=== PATIENT | male | born 1955 | race Two or more races ===

== ENCOUNTER 2020-08-28 09:50 | Outpatient (REF) | payer MEDICARE, MEDICAID, SELFPAY | END 2020-08-28 09:51 | disposition home or self-care (01) | LOC: HO.LAB 09:50 | PROVIDERS: Visit Provider Internal Medicine | DX: Z20.828 Contact with and (suspected) exposure to other viral communicable diseases (principal) | CPT/HCPCS: C9803; U0003 ==

== ENCOUNTER 2020-09-08 10:56 | Outpatient (REF) | payer MEDICARE, MEDICAID, SELFPAY | END 2020-09-08 10:57 | disposition home or self-care (01) | LOC: HO.LAB 10:56 | PROVIDERS: Visit Provider Internal Medicine | DX: Z20.828 Contact with and (suspected) exposure to other viral communicable diseases (principal) | CPT/HCPCS: C9803; U0003 ==

== ENCOUNTER 2020-09-21 08:29 | Outpatient (REF) | payer MEDICARE, MEDICAID, SELFPAY | END 2020-09-21 08:30 | disposition home or self-care (01) | LOC: HO.LAB 08:29 | PROVIDERS: PCP Psychiatry & Neurology Neurology; Visit Provider Internal Medicine | DX: Z20.822 Contact with and (suspected) exposure to COVID-19 (principal) | CPT/HCPCS: 36415; C9803; U0003 ==

== ENCOUNTER 2021-08-14 09:18 | Emergency (ER) | payer MEDICARE, MEDICAID, SELFPAY ==
--- NOTE | ~2021-08-14 | XR_ITS ---
EXAMINATION: XR HIP, RIGHT CLINICAL INFORMATION: Right hip pain COMPARISON: None TECHNIQUE: AP pelvis and 2 views of the right hip. FINDINGS: AP film of the pelvis does not demonstrate any evidence of acute fracture or diastases. Patient is status post previous pedicle screw and aashish fixation L4-S1. No destructive bony lesions are appreciated. There appears to be some narrowing of the inferior joint space of the left hip. Collar spurring is seen bilaterally within the hip joints. There is some cortical thickening/bump seen about the superior aspect of the left proximal femoral head and neck. This may be related to impingement syndrome. There appears be fusion superior aspects of the sacroiliac joints bilaterally. 2 views of the right hip do not demonstrate any evidence of acute fracture or dislocation. There is a small bump seen involving the junctions of the right femoral head and neck superiorly which may be related to impingement syndrome. XR/XR hip RT w PEL1V IMPRESSION: Status post instrumentation L4-S1. No evidence of acute fracture or dislocation of the right hip. Bilateral hip, spurring. Findings consistent with bilateral hip impingement.
[2021-08-14 09:36] VITALS: BP 144/78; PULSE 75; O2SAT 100
[2021-08-14 09:37] VITALS: BP 148/75; PULSE 82; RESP 18; TEMP 36.6; O2SAT 100; BMI 31.6
--- NOTE | 2021-08-14 09:51 | ED_ITS ---
HPI - General Adult General Chief complaint: Extremity Injury, Lower Stated complaint: RIGHT HIP PAIN NO NEW INJURY PER EMS Time Seen by Provider: 08/14/21 09:43 Source: patient Mode of arrival: EMS Limitations: no limitations History of Present Illness HPI narrative: These is 65 years old patient with chronic hip pain follow by a pain clinic in another hospital presented to the emergency room by ambulance with severe hip pain. A Tums he takes meloxicam, morphine, oxycodone. He states that he has arthritis about the cannot be open rated be because he has a difficult airway and is a poor surgical candidate because of that Onset (ago): week(s) Location: right and lower extremity (hip) Radiation: non-radiation Severity: moderate Quality: burning Pain Consistency: constant Relieving factors: none Exacerbating factors: none Treatments prior to arrival: NSAID and other (narcotic Morphin and oxycodone ) Related Data Allergies Allergy/AdvReac Type Severity Reaction Status Date / Time No Known Allergies Allergy Unverified 05/28/20 18:31 Review of Systems Review of Systems: Yes all other systems are reviewed and are negative Constitutional: Constitutional: Reports no additional constitutional co mplaints Cardiovascular: Cardiovascular: Reports no additional cardiovascular complaints Respiratory: Respiratory: Reports no additional respiratory complaints Musculoskeletal: Musculoskeletal: Reports no additional musculoskeletal compla ints [facility] Past Medical History Attestation statement: The following information was validated with the patient. Medical History Depression High cholesterol HTN (hypertension) Social History Social History Advance Directives: No Advance Directives Information Provided: Yes Physical Exam Vital Signs: Vital Signs: Last Vital Signs Temp 98 F 08/14/21 09:37 Pulse 82 08/14/21 09:37 Resp 18 08/14/21 09:37 BP 148/75 H 08/14/21 09:37 Pulse Ox 100 08/14/21 09:37 BMI result Body Mass Index 31.6 Const: General: cooperative Nutritional Appearance: average body habitus Orientation/consciousness: patient oriented x3 HENMT: Head: Yes normal to inspection Face and sinus: Yes normal facial exam Mouth: Normal oral and palatal mucosa present Neck: Neck: Yes normal visual inspection, Yes full ROM and Yes no lymphadenopathy Chest: Chest palpation & inspection: normal inspection of the chest Resp: Effort & Inspection: normal respiratory effort Auscultation: clear to auscultation bilaterally GI: Inspection: Yes normal to inspection Palpation (GI): Soft to palpation, not firm and nontender Skin: General skin exam: no rashes or lesions noted Neuro: General: patient oriented x3 Extrem: Other: rt hip tenderness decrease ROM Course Reevaluation(s) Reevaluation #1: Patient was seen by PT in the emergency department, he was able to ambulate safely with a walker, per physical therapy can be discharged home safely Medical Decision Making Medical Records Medical records narrative: This patient is already on high dose of narcotic he is followed by the pain clinic his x-ray does not show any acute changes he was seen by PT did okay with PT, he will call the pain clinic for follow-up I spoke with the daughter and the patient at length Imaging Data rt hip: Radiologist's impression: None TECHNIQUE: AP pelvis and 2 views of the right hip. FINDINGS: AP film of the pelvis does not demonstrate any evidence of acute fracture or diastases. Patient is status post previous pedicle screw and aashish fixation L4-S1. No destructive bony lesions are appreciated. There appears to be some narrowing of the inferior joint space of the left hip. Collar spurring is seen bilaterally within the hip joints. There is some cortical thickening/bump seen about the superior aspect of the left proximal femoral head and neck. This may be related to impingement syndrome. There appears be fusion superior aspects of the sacroiliac joints bilaterally. 2 views of the right hip do not demonstrate any evidence of acute fracture or dislocation. There is a small bump seen involving the junctions of the right femoral head and neck superiorly which may be related to impingement syndrome. XR/XR hip RT w PEL1V IMPRESSION: Status post instrumentation L4-S1. ? No evidence of acute fracture or dislocation of the right hip. Bilateral hip, spurring. ? Findings consistent with bilateral hip impingement. ? Discharge Plan Discharge Clinical Impression: Chronic hip pain Patient Disposition: Home, Self-Care Instructions: Hip Pain (ED) Additional Instructions: Follow-up with you pain management doctor, call to make a follow-up appointment
[2021-08-14] MEDS: HYDROmorphone HCl 1 MG/ML SYRINGE IM (10:24)
[2021-08-14] MEDS: Ketorolac Tromethamine 30 MG/ML VIAL IM (10:24)
[2021-08-14 13:17] VITALS: BP 148/75; PULSE 82; O2SAT 100
== END 2021-08-14 13:11 | disposition home or self-care (01) ==
PROVIDERS: Emergency Provider Emergency Medicine
DX: G89.29 Other chronic pain (principal); M25.551 Pain in right hip; I10 Essential (primary) hypertension
CPT/HCPCS: 73502; 96372; 97161; 99283; 99284; J1170; J1885

== ENCOUNTER 2024-09-26 08:40 | Outpatient (REF) | payer OTHER, SELFPAY ==
--- NOTE | ~2024-09-26 | XR_ITS ---
CLINICAL HISTORY: osteoarthritis 4 view, pelvis and left hip Comparison: None Findings: No acute fracture or dislocation. Moderate hip joint osteoarthritis. The soft tissues are unremarkable. IMPRESSION: No acute findings. This document has been electronically signed by: Abelino Izaguirre MD on 09/28/2024 07:29:52
== END 2024-09-26 08:41 | disposition home or self-care (01) ==
LOC: HO.XRAY 08:40
PROVIDERS: PCP Internal Medicine; Visit Provider Nurse Practitioner Women's Health
DX: M16.0 Bilateral primary osteoarthritis of hip (principal)
CPT/HCPCS: 73502

== ENCOUNTER → 2024-09-26 08:59 | Outpatient (BNV) | payer OTHER, SELFPAY | PROVIDERS: PCP Internal Medicine; Visit Provider Specialist | DX: M16.12 Unilateral primary osteoarthritis, left hip (principal) | CPT/HCPCS: 73502 ==

== ENCOUNTER 2025-01-10 09:46 | Outpatient (REF) | payer OTHER, SELFPAY ==
--- NOTE | ~2025-01-10 | XR_ITS ---
EXAMINATION: XR BILATERAL HIPS WITH AP PELVIS CLINICAL INFORMATION: OSTEOARTHRITIS COMPARISON: 09/26/2014, 08/14/2021. TECHNIQUE: AP and frog-leg lateral views of each hip and an AP view of the pelvis. FINDINGS: There is no fracture, dislocation, or suspicious bone lesion. There is normal alignment of both hip joints. There is moderate osteoarthrosis of both hips , with mild to moderate joint space narrowing, and more significant subchondral sclerosis, cystic changes, and marginal osteophytic spurring. There are osseous bumps along the lateral femoral head neck margins, unchanged from priors, which can be seen in cases of femoral acetabular impingement. Mild enthesopathic spurring of both greater trochanters, iliac wing, and bilateral hamstrings insertions. The SI joints again demonstrate moderate arthritis with partial ankylosis of the superior aspects. Lower lumbar fusion of L4-S1, no hardware complication seen. Spinal stimulator generator seen overlying the left iliac crest. No soft tissue abnormalities. XR/XR hip BI w PEL1V IMPRESSION: 1. Moderate osteoarthrosis of both hip joints, stable from prior exams. See above. 2. Enthesopathic changes. Electronically signed by: Dakotah Rouse MD 01/10/2025 04:01 PM EDT
--- OUTSIDE RECORDS SUMMARY | 2025-01-10 10:33 | XMS_ITS | Encounter Summary ---
Author Organization [facility] Address [address] [place] [address] Care Team Providers Care Metal Model Maker Name Role Phone Leydi Leonard MD Primary Care Provider [phone] Reason for Visit * Reason Onset Date Comments special procedure 01/06/2025 Encounter Details Date Type Department Care Team (Late st Contact Info) Description 01/06/2025 Telephone Gastroenterology - [address] [place] [phone] Carolann Lincoln MD [address] [place] [address] special procedure Social History Tobacco Use Types Packs/Day Years Used Date Smoking Tobacco: Some Days Smokeless Tobacco: Never Alcohol Use Standard Drinks/Week Comments No 0 (1 standard drink = 0.6 oz pur e alcohol) Sex and Gender Information Value Date Recorded Sex Assigned at Not on file Legal Sex Male 8:28 AM EST Gender Identity Not on file Sexual Orientation Not on file documented as of this encounter Progress Notes * Cherry Champion - 01/06/2025 11:20 AM EDT rescheduled * Cherry Champion - 01/06/2025 10:48 AM EDT 1st attempt to schedule an appointment patient left message to call back Screening-any * Rebekah Sarah - 01/06/2025 9:24 AM EDT PLEASE CALL PTS DAUGHTER TERRY TO RESCHEDULE PROCEDURE FROM TODAY [phone] documented in this encounter Plan of Treatment Upcoming Encounters Date Type Department Care Team (Late st Contact Info) Description 02/21/2025 8:45 AM EDT Office Visit Internal Medicine - [place] [address] [place] [phone] Leydi Leonard MD [address] [place] [address] documented as of this encounter Visit Diagnoses Not on filedocumented in this encounter Care Teams Metal Model Maker Relationship Specialty Start Date End Date Leydi Leonard MD PCP - General Internal Medicine 07/26/18 documented as of this encounter
--- OUTSIDE RECORDS SUMMARY | 2025-01-10 10:33 | XMS_ITS | Encounter Summary ---
Author Organization [facility] Address [address] [place] [address] Care Team Providers Care Database Development Project Manager Name Role Phone Leydi Leonard MD Primary Care Provider [phone] Encounter Details Date Type Department Care Team (Late st Contact Info) Description 01/06/2025 Telephone Gastroenterology - [address] [place] [phone] Carolann Lincoln MD [address] [place] [address] Social History Tobacco Use Types Packs/Day Years [...] as of this encounter Progress Notes * Yennifer Ocasio MA - 01/06/2025 1:38 PM EDT NO PA NEEDED * Cherry Champion - 01/06/2025 1:37 PM EDT Pt is scheduled for 02/04 2pm with ashely at [facility] for colon screening. Pt has medicaid documented in this encounter Plan of Treatment Upcoming Encounters Date Type Department Care Team (Late st Contact Info) Description 02/21/2025 8:45 AM EDT Office Visit Internal Medicine - [place] [address] [place] [address] Leydi Leonard MD [address] [place] [address] documented as of this encounter Visit Diagnoses Not on filedocumented in this encounter Care Teams Database Development Project Manager Relationship Specialty Start Date End Date Leydi Leonard MD PCP - General Internal Medicine 07/26/18 documented as of this encounter
--- OUTSIDE RECORDS SUMMARY | 2025-01-10 10:33 | XMS_ITS | Clinical Summary ---
Author Organization [address] [facility] Address [address] [place] [address] Phone Care Team Providers Care Superannuation Funds Manager Name Role Phone Leydi Leonard MD Primary Care Provider [phone] Allergies No known active allergies Medications polyethylene glycol (Golytely) 236-22.74-6.74 -5.86 gram solution Take 4L by mouth once for one dose. May substitue any PEG. Starting at 6PM the night before your procedure drink 1 8oz glasses at your own pace until you complete half of the gallon. Finish 2nd half of the gallon 5 hours before your procedure. 4000 mL 5 Active bisacodyL (DULCOLAX) 5 mg EC tablet Take 2 tablets by mouth right before beginning bowel prep. See instructions provided by the office 2 tablet 5 Active bisacodyL (DULCOLAX) 5 mg EC tablet Take 2 tablets by mouth right before beginning bowel prep. See instructions provided by the office 2 tablet 5 Active polyethylene glycol (Golytely) 236-22.74-6.74 -5.86 gram solution Take 4L by mouth once for one dose. May substitue any PEG. Starting at 6PM the night before your procedure drink 1 8oz glasses at your own pace until you complete half of the gallon. Finish 2nd half of the gallon 5 hours before your procedure. 4000 mL 5 Active polyethylene glycol (Golytely) 236-22.74-6.74 -5.86 gram solution Take 4L by mouth once for one dose. May substitue any PEG. Starting at 6PM the night before your procedure drink 1 8oz glasses at your own pace until you complete half of the gallon. Finish 2nd half of the gallon 5 hours before your procedure. 4000 mL 5 Active bisacodyL (DULCOLAX) 5 mg EC tablet Take 2 tablets by mouth right before beginning bowel prep. See instructions provided by the office 2 tablet 5 Active oxyCODONE-aceta minophen (PERCOCET) 10-325 mg per tablet take 1 tablet by mouth 3 times a day as needed as needed for pain 5 Active morphine (MS CONTIN) 15 mg 12 hr tablet TAKE 1 TABLET BY MOUTH 3 TIMES A DAY NEEDED FOR SEVERE PAIN Active losartan (COZAAR) 50 mg tablet Take 1 tablet (50 mg total) by mouth 1 (one) time each day. Active gabapentin (NEURONTIN) 100 mg capsule TOME 1 CAPSULA POR LA BOCA EN LA MANANA Y 2 CAPSULAS EN LA NOCHE 5 Active buPROPion (WELLBUTRIN) 75 mg tablet TAKE 1 TABLET BY MOUTH TWICE DAILY 2ND DOSE NO LATER THAN 2PM 5 Active ALPRAZolam (XANAX) 2 mg tablet Take 1 tablet (2 mg total) by mouth. at bedtime. Active calcium carbonate-vitam in D3 600 mg-5 mcg (200 unit) per tablet Take 1 tablet by mouth 2 (two) times a day. 5 Active docusate sodium (COLACE) 100 mg capsule ONE TAB BY MOUTH AT NIGHT FOR CONSTIPATION 4 Active escitalopram (LEXAPRO) 20 mg tablet Take 1 tablet (20 mg total) by mouth 1 (one) time each day. Active fenofibrate (LOFIBRA) 54 mg tablet Take 1 tablet (54 mg total) by mouth 1 (one) time each day. Active meloxicam (MOBIC) 15 mg tablet Take 1 tablet (15 mg total) by mouth 1 (one) time each day. 5 Active Encounters Date Type Department Care Team Description 01/06/2025 Telephone Gastroenterology - [address] [address] Carolann Lincoln MD 01/06/2025 Telephone Gastroenterology - [address] [address] Carolann Lincoln MD special procedure 11/04/2024 Telephone Gastroenterology - [address] [facility] [address] [place] [address] Carolann Lincoln MD Special Procedure from Last 3 Months Surgical History Surgery Date Site/Laterality Comments LUMBAR LAMINECTOMY PROCEDURE: HISTORICAL LUMB LAMINECTOMY Medical History Medical History Date Comments Gastric polyps 01/08/2016 DX:Gastric polyp s GERD (gastroesophageal reflux disease) 01/06/2016 DX:GERD (gastroesophageal reflux disease) Hyperlipidemia 05/21/2018 DX:Hyperlipidemi a Major depression, recurrent (CMS/HCC V24) 10/18/2018 DX:Major depression, recurre nt (HCC) Nicotine dependence 10/04/2016 DX:Nicotine dependence Post laminectomy syndrome 12/15/2017 DX:Pos t laminectomy syndrome Pre-diabetes 05/18/2018 DX:Pre-diabetes Psoriasis 09/06/2017 DX:Psoriasis SSBE (short-segment Fields' s esophagus) 04/20/2016 DX:SSBE (short-segment [place] tt's esophagus) Social History Tobacco Use Types Packs/Day Years Used Date Smoking Tobacco: Some Days Smokeless Tobacco: Never Alcohol Use Standard Drinks/Week Comments No 0 (1 standard drink = 0.6 oz pur e alcohol) Sex and Gender Information Value Date Recorded Sex Assigned at Not on file Legal Sex Male 8:28 AM EST Gender Identity Not on file Sexual Orientation Not on file Obstetrics History Last Filed Vital Signs Vital Sign Reading Time Taken Comments Blood Pressure 130/62 06/03/2024 9:58 AM EDT Pulse 76 06/03/2024 9:58 AM EDT Temperature - - Respiratory Rate - - Oxygen Saturation - - Inhaled Oxygen Concentration - - Weight 114 kg (252 lb) 12/27/2024 11:00 AM EDT Height 177.8 cm (5' 10 ) 12/27/2024 11:00 AM EDT Body Mass Index 36.16 12/27/2024 11:00 AM EDT Plan of Treatment Upcoming Encounters Date Type Department Care Team (Late st Contact Info) Description 02/21/2025 8:45 AM EDT Office Visit Internal Medicine - [place] [address] [place] [phone] Leydi Leonard MD [address] [facility] [address] [place] [phone] Health Maintenance Due Date Last Done Comments DTaP,Tdap,and Td Vaccines (1 - Tdap) 1973 Pneumococcal Vaccine: 50+ Years (1 of 2 - PCV) 1973 Zoster Vaccines (1 of 2) 2004 Abdominal Aortic Aneurysm (AAA) Screen 08/20/2022 Cholesterol Screening (Lipid Panel) 08/20/2022 Colorectal Cancer Screening: Colonoscopy 08/20/2022 Depression Screening 08/20/2022 Falls Risk Assessment 08/20/2022 Hepatitis C Screening 08/20/2022 Medicare Annual Wellness Visit 08/20/2022 Social Influencers of Health Screening 08/20/2022 COVID-19 Vaccine (3 - 2023-2 5 season) 2024 11/13/2020, 10/23/2020 Influenza Vaccine (Season Ended) 2025 RSV Immunization Adult Patients (1 - 1-dose 75+ series) 2029 HIB Vaccines Aged Out No longer eligi ble based on patient's age to complete this topic HPV Vaccines Aged Out No longer eligi ble based on patient's age to complete this topic Hepatitis A Vaccines Aged Out No long er eligible based on patient's age to complete this topic Hepatitis B Vaccines Aged Out No long er eligible based on patient's age to complete this topic IPV Vaccines Aged Out No longer eligi ble based on patient's age to complete this topic MMR Vaccines Aged Out No longer eligi ble based on patient's age to complete this topic Meningococcal ACWY Vaccine Aged Out N o longer eligible based on patient's age to complete this topic Meningococcal B Vaccine Aged Out No l onger eligible based on patient's age to complete this topic RSV Immunization Patients Under 20 months Aged Out No longer eligible b ased on patient's age to complete this topic Varicella Vaccines Aged Out No longer eligible based on patient's age to complete this topic Insurance MEDICAID - [place] [employer] MEDICARE Member Subscriber Plan / Payer (Ef fective 2024-Present) Name:Hosea Renee Relation to Subscriber:Self Name:Hosea Renee Payer ID:[id number] Group ID:[id number] Type:Not on file Address: [facility] [id number] [address] Care Teams Superannuation Funds Manager Relationship Specialty Start Date End Date Leydi Leonard MD PCP - General Internal Medicine 07/26/18
--- OUTSIDE RECORDS SUMMARY | 2025-01-10 10:33 | XMS_ITS ---
Author Name Mr. Garcia Hinojosa Address [address] [place] [address] Phone [phone] [facility] Care Team Providers Care Patient Relations Representative Name Role Phone Andres Smith Unavailable [phone] Christin Norman Unavailable Unavailable Leydi Leonard Unavailable [phone] Signed ORDERS, [employer] Unavailable Reason for Referral Not Available Allergies, adverse reactions, alerts No known allergies History of medication use Medication Class Instructions Start Date End Date Morphine Sulfate ER 15 mg Tab ER TAKE 1 TABLET BY MOUTH THREE TIMES DAILY FOR SEVERE PAIN 2022-06-14 No Data Available oxyCODONE-Acetaminophen 10/325 mg Tab TAKE 1 TABLET BY MOUTH UP TO THREE TIMES DAILY NEEDED FOR SEVERE PAIN 2022-06-14 No Data Available Escitalopram Oxalate 20 mg Tab TAKE 1 TABLET BY MOUTH EVERY DAY 2022-06-21 No Data Available ALPRAZolam 2 mg Tab TAKE 1 TABLET BY MARINA TH AT BEDTIME 2022-03-29 No Data Available Meloxicam 15 mg Tab TAKE 1 TABLET BY MARINA TH EVERY DAY FOR JOINT PAIN 2022-07-13 No Data Available Brimonidine Tartrate 0.2 % Solution INSTILL 1 DROP IN BOTH EYES TWICE DAILY 2022-05-11 No Data Available Dorzolamide HCl-Timolol Mal 22.3/6.8 mg/ML Solution INSTILL 1 DROP IN BOTH EYES TWICE DAILY 2022-01-06 No Data Available buPROPion 75 mg Tab TAKE 1 TABLET BY MARINA TH TWICE DAILY. TAKE SECOND DOSE NO LATER THAN 2PM 2022-06-21 No Data Available Losartan Potassium 50 mg Tab TAKE 1 TABLET BY MOUTH DA SARANYA 2022-05-13 No Data Available Fenofibrate 54 mg Tab TAKE 1 TABLET BY MOUTH DAILY 10-23-20 No Data Available Gabapentin 100 mg Cap 1 tablet po in AM & 3 tablets po in PM 2022-09-21 No Data Available Latanoprost 0.005 % Solution INSTILL 1 D ROP IN BOTH EYES EVERY NIGHT 2022-10-05 No Data Available Morphine Sulfate ER 15 mg Tab ER three times per day 2022-12-09 No Data Available oxyCODONE-Acetaminophen 10/300 mg Tab 1 tablet orally every 6 hours as needed 2022-12-09 No Data Available Meloxicam 15 mg Tab 1 tablet orally QD 2022-12-09 No Data Available CALCIUM/D3 600MG-200IU TABLETS TAKE 1 TABLET BY MOUTH TWICE DAILY 2023-04-07 No Data Available Senna-Time 8.6 mg Tab TAKE 1 TABLET BY M OUTH EVERY DAY AT BEDTIME TO RELIEVE CONSTIPATION 2023-08-22 No Data Available Docusate Sodium 100 mg Cap TAKE 1 CAPSUL E BY MOUTH EVERY DAY AT NIGHT FOR CONSTIPATION 2023-08-22 No Data Available Problem List Problem Status Onset Date Resolved Date Chronic prescription opiate use Active 2022-11-11 1 N/A Difficulty walking Active 2024-01-31 N/A Major depressive disorder, recurrent Active 2022 N/A Generalized anxiety disorder Active 2022-12-09 N/A Other problems related to [facility] facilities and other health care Active 2024-02-02 N/A Chronic radicular low back p ainUnspecified inflammatory spondylopathy, lumbar region Active 2022-12-09 N/A Encounters Encounters Type Facility Date of Service Diagnosis/Co mplaint New patient,40-59min; chronic exacerbation, 2 stable chronic or 1 acute illness add add modifier 95 for video (do not use for phone, instead use [id number]) [facility], ([place]) 12/[place]/2022 Radiculopathy, lumbar regionOther chronic painLong term (current) use of opiate analgesicGeneralized anxiety disorderMajor depressive disorder, recurrent, unspecified New patient,40-59min; chronic exacerbation, 2 stable chronic or 1 acute illness add add modifier 95 for video (do not use for phone, instead use 63449-52) [facility], ([place]) 12/09/2022 New patient,40-59min; chronic exacerbation, 2 stable chronic or 1 acute illness add add modifier 95 for video (do not use for phone, instead use 05640-96) [facility], ([place]) [place] New patient,40-59min; chronic exacerbation, 2 stable chronic or 1 acute illness add add modifier 95 for video (do not use for phone, instead use 63767-12) [facility], ([place]) 12[place]09/2022 New patient,40-59min; chronic exacerbation, 2 stable chronic or 1 acute illness add add modifier 95 for video (do not use for phone, instead use 47994-13) [facility], ([place] New patient,40-59min; chronic exacerbation, 2 stable chronic or 1 acute illness add add modifier 95 for video (do not use for phone, instead use 30129-55) [facility], ([place] New patient,40-59min; chronic exacerbation, 2 stable chronic or 1 acute illness add add modifier 95 for video (do not use for phone, instead use 18599-63) [facility], ([place] New patient,40-59min; chronic exacerbation, 2 stable chronic or 1 acute illness add add modifier 95 for video (do not use for phone, instead use 90960-22) [facility], ([place]) [place] New patient,40-59min; chronic exacerbation, 2 stable chronic or 1 acute illness add add modifier 95 for video (do not use for phone, instead use 29089-74) [facility], ([place] New patient,40-59min; chronic exacerbation, 2 stable chronic or 1 acute illness add add modifier 95 for video (do not use for phone, instead use 24582-30) [facility], ([place]) [place] Estab. patient 30-39min; chronic exacerbation, 2 stable chronic or 1 acute illness add add modifier 95 for video, (do not use for phone, instead use 23711-64) [facility], ([place]24 Radiculopathy, lumbar regionOther chronic painUnspecified inflammatory spondylopathy, lumbar regionLong term (current) use of opiate analgesicGeneralized anxiety disorderOther problems related to medical facilities and other health careMajor depressive disorder, recurrent, unspecifiedDifficulty in walking, not elsewhere classified Estab. patient 30-39min; chronic exacerbation, 2 stable chronic or 1 acute illness add add modifier 95 for video, (do not use for phone, instead use 78677-76) [facility], ([place]) [place] Estab. patient 30-39min; chronic exacerbation, 2 stable chronic or 1 acute illness add add modifier 95 for video, (do not use for phone, instead use 11826-51) [facility], ([place]) 01[place] Estab. patient 30-39min; chronic exacerbation, 2 stable chronic or 1 acute illness add add modifier 95 for video, (do not use for phone, instead use 61443-36) [facility], ([place] Estab. patient 30-39min; chronic exacerbation, 2 stable chronic or 1 acute illness add add modifier 95 for video, (do not use for phone, instead use 40116-47) [facility], ([place] Estab. patient 30-39min; chronic exacerbation, 2 stable chronic or 1 acute illness add add modifier 95 for video, (do not use for phone, instead use 48181-46) [facility], ([place]) [place] Estab. patient 30-39min; chronic exacerbation, 2 stable chronic or 1 acute illness add add modifier 95 for video, (do not use for phone, instead use 44604-52) [facility], ([place]) 01[place]/2024 Vital Signs Date of Collection Vitals 2022-12-09 11:10:31 Height - 177.8 cmWei ght - 99.79 kgBody Mass Index (BMI) - 31.57 kg/m2BP Diastolic - 90.0 mm[Hg]BP Systolic - 182.0 mm[Hg]Pain Scale - 10.0 {score} 2024-01-31 07:06:53 Height - 177.8 cmWei ght - 106.6 kgBody Mass Index (BMI) - 33.72 kg/m2BP Diastolic - 79.0 mm[Hg]BP Systolic - 120.0 mm[Hg]Heart Rate - 89.0 /min Social History Social History Social History Observation Description Effec tive Time Current Smoking Status Former smoker 2 Sex Male History of Procedures Procedures Service Procedure code Service date Servicing provider Phone# New patient,40-59min; chronic exacerbation, 2 stable chronic or 1 acute illness add add modifier 95 for video (do not use for phone, instead use 40311-10) 25444 2022-12-09 No Data Available No Data Availa ble Medication List Documented (1159F) 1159F 2022-12-09 No Data Available No Data Riya ilable Medication Review by prescribing provider or pharmacist documented (1160F) 1160F 2022-12-09 No Data Available No Data Riya ilable Functional Status Assessed (1170F) 1170F 2022-12-09 No Data Available No Data Avail able Pain Assessment - Pain Documented on a Pain Scale (1125F) 1125F 2022-12-09 No Data Available No Data Riya ilable Pain Assessment - NO pain present (1126F) 1126F 2022-12-09 No Data Available No Data A vailable Advance Care Directive Advance care planning discussion documented in the medical record (1158F) 1158F 2022-12-09 No Data Available No Data Availa ble BMI obtained (3008F) 3008F 2022-12-09 No Data Availab le No Data Available SBP >= 140 3077F 2022-12-09 No Data Available No Data Available DBP >=90 3080F 2022-12-09 No Data Available No Data Available Estab. patient 30-39min; chronic exacerbation, 2 stable chronic or 1 acute illness add add modifier 95 for video, (do not use for phone, instead use 48640-05) 44703 2024-01-31 No Data Available No Data Availa ble Medication List Documented (1159F) 1159F 2024-01-31 No Data Available No Data Riya ilable Medication Review by prescribing provider or pharmacist documented (1160F) 1160F 2024-01-31 No Data Available No Data Riya ilable Pain Assessment - Pain Documented on a Pain Scale (1125F) 1125F 2024-01-31 No Data Available No Data Riya ilable BMI obtained (3008F) 3008F 2024-01-31 No Data Availab le No Data Available SBP < 130 (3074F) 3074F 2024-01-31 No Data Available No Data Available DBP <80 (3078F) 3078F 2024-01-31 No Data Available No Data Available Functional Status Functional Category Effective Dates Cognition Status: Oriented to Person, Pl chetna and Time 2022-12-09 Social Supports - # of Inter actions with Friends/Family in a typical week: Daily 2022-12-09 ADLsAmbulating - Needs Rizwana tanceDressing - Needs assistanceBathing - Needs assistanceToileting - Needs assistanceTransfers - Needs assistanceEating - Some assistanceiADLsShopping - Needs assistanceMedications - Needs assistanceHousekeeping - Needs assistanceCooking - Needs assistanceFalls in last 6 months - yes 2024-01-31 Mental Status Status Date alert and oriented 2022-12-09 Assessments Date of Service Assessments 2022-12-09 11:10:31 Chronic radicular lo w back pain - ongoingChronic prescription opiate use - ongoingGeneralized anxiety disorder - ongoingMajor depressive disorder, recurrent - ongoing 2024-01-31 07:06:53 Chronic radicular lo w back painChronic prescription opiate useGeneralized anxiety disorderMajor depressive disorder, recurrentDifficulty walkingOther problems related to medical facilities and other health care Plan of Care Date of Service Plans 2022-12-09 11:10:31 Medication Review by prescribing provider or pharmacist documented (1160F)Medication List Documented (1159F)Functional Status Assessed (1170F)Advance Care Directive Advance care planning discussion documented in the medical record (1158F)BMI obtained (3008F)SBP >= 140DBP >=90Televideo new patient,40-59min; chronic exacerbation, 2 stable chronic or 1 acute illness add modifier 95Pain Assessment - Pain Documented (1125F)Continue to see PCP. [facility] or disease education needs that may arise.pt has spinal fusion with medal rodsunable to bend overlong term use of morphine, oxycodone, mexicancontinue lorazepamf/u with psychiatristcontinue escitalopramf/u with psychiatry 2024-01-31 07:06:53 Medication Review by prescribing provider or pharmacist documented (1160F)Medication List Documented (1159F)Functional Status Assessed (1170F)Advance Care Directive Advance care planning discussion documented in the medical record (1158F)BMI obtained (3008F)SBP < 130 (3074F)DBP <80 (3078F)Televideo 30-39min; chronic exacerbation, 2 stable chronic or 1 acute illness add modifier 95Advance care planning discussed and documented ? advance care plan or surrogate decision-maker was documented in the medical record. (1123F)Pain Assessment - Pain Documented (1125F)Continue to see PCP. Follow-up with [facility] as needed for any acute or disease education needs that may arise.pt has spinal fusion with medal rodsunable to bend overNeeds help for most ADLslong term use of morphine, oxycodone, meloxicam.Has Narcan.continue lorazepamf/u with psychiatrist Please consult regarding best sleep management and anxiety/depression management medication.continue escitalopramf/u with psychiatry Please consult regarding best sleep management and anxiety/depression management medication.Can walk around 10-15 ft(only with vertical walker) then has to rest.Please call CB if you fall.Contingency plan dependent on nature of fall and extent of injuries; managed by ortho/spine specialists, pain management. Goals Date Goal 2022-12-09 1. Remember to keep all appointments with your PCP.2. Take all medication on time and try to eat healthy3. Call if you have questions or concerns before you go to the ER.4. Discussed how to contact [facility] via phone or tablet. Health Concerns Date Concern 2024-01-31 Visit completed usin g audio/video. Patient/Guardian agreed to visit via telehealth. Today, patient has chief complaint of: follow up care and comprehensive review.Reviewed Allergies, Medications, Active Medical conditions, past medical/surgical history, Social history. 2024-01-31 DNR - DO NOT RESUSCI FRANK - HCP Aida Manzanares 2024-01-31 Most recent hospital stay(s) or ER visit(s) and precipitating factors: 2024-01-31 Open HEDIS Measure keila salazar:
== END 2025-01-10 09:47 | disposition home or self-care (01) ==
LOC: HO.XRAY 09:46
PROVIDERS: PCP Internal Medicine; Visit Provider Nurse Practitioner Women's Health
DX: M16.0 Bilateral primary osteoarthritis of hip (principal)
CPT/HCPCS: 73521

== ENCOUNTER → 2025-01-10 10:00 | Outpatient (BNV) | payer OTHER, SELFPAY | PROVIDERS: PCP Internal Medicine; Visit Provider Radiology Diagnostic Radiology | DX: M16.0 Bilateral primary osteoarthritis of hip (principal) | CPT/HCPCS: 73521 ==

== ENCOUNTER 2025-05-15 10:00 | Outpatient (AMB) | payer OTHER, SELFPAY ==
--- NOTE | 2025-05-15 10:01 | MHC.OFFVIS ---
Intake Visit Reasons: New Patient - Bilateral Hip Pain Intake Note: Hosea is a 69 year old male who presents today as a New Patient with complaints of Bilateral Hip Pain. Patient reports ongoing bilateral hip pain for many years now. Patient states his right hip is more bothersome to him, radiating to the toes, with associated numbness. He feels like his right hip comes out of place. He states it is painful to use stairs or to squat down. He is taking Percocet and Morphine without relief. He has had a spine stimulator implanted with an outside pain mgmt office. He was supposed to have surgery on his hip but it did not happen due to some concerns - patient is a poor historian and unable to provide more information. Allergies No Known Allergies Allergy (Unverified 05/15/25 10:04) HPI HPI New Patient - Bilateral Hip Pain: Details: Hosea is a 69 year old male who presents today as a New Patient with complaints of Bilateral Hip Pain. Patient reports ongoing bilateral hip pain for many years now. Patient states his right hip is more bothersome to him, radiating to the toes, with associated numbness. He feels like his right hip comes out of place. He states it is painful to use stairs or to squat down. He is taking Percocet and Morphine without relief. He has had a spine stimulator implanted with an outside pain mgmt office. He was supposed to have surgery on his hip but it did not happen due to some concerns - patient is a poor historian and unable to provide more information. He describes pain with activity that is mostly in the lower back radiating down the outside of the right hip into the knee in the foot. He had bilateral hip joint injections and these did not help at all. He had no really from his pain. [facility] Medical History Depression High cholesterol HTN (hypertension) Physical Exam Extrem Other: No pain with bilateral hip range of motion. Results Reviewed Results Reviewed: I personally reviewed relevant radiographs. Moderate osteoarthritis bilateral hips left greater than right Assessment & Plan Assessment & Plan (1) Bilateral hip joint arthritis: Code(s): M16.0 - Bilateral primary osteoarthritis of hip Category: Medical Plan: Osteoarthritis bilateral hips. He is not symptomatic in the hip joint. Intra-articular hip injections were not helpful and he does not describe pain that I associated with hip arthritis. (2) Lumbar radiculopathy: Code(s): M54.16 - Radiculopathy, lumbar region Category: Medical Plan: Lumbar radicular pain that has been present for years. He has spinal fusion surgery and has an implant in his spine. He has not seen a pain management doctor in our region according to him and I made a referral to our pain management department. Coding Level of Care Code New Pt Level 3 (68253) Complex EM visit Add On G2211 Diagnoses Bilateral hip joint arthritis M16.0 Lumbar radiculopathy M54.16
--- OUTSIDE RECORDS SUMMARY | 2025-05-15 11:07 | XMS_ITS | Clinical Summary ---
Author Organization [facility] Address [address] [place] [address] Phone Care Team Providers Care Retirement Sales Consultant Name Role Phone Leydi Leonard MD Primary Care Provider [phone] Allergies No known active allergies Medications oxyCODONE-acet aminophen (PERCOCET) 10-325 mg per tablet take 1 [...] mg total) by mouth. at bedtime. Active docusate sodium (COLACE) 100 mg capsule ONE TAB BY MOUTH AT NIGHT FOR CONSTIPATION 4 Active escitalopram (LEXAPRO) 20 mg tablet Take 1 tablet (20 mg total) by mouth 1 (one) time each day. Active meloxicam (MOBIC) 15 mg tablet Take 1 tablet (15 mg total) by mouth 1 (one) time each day. 5 Active bisacodyL (DULCOLAX) 5 mg EC [...] before your procedure. 4000 mL 5 Active cyanocobalamin (Vitamin B-12) 500 mcg tablet Take 1 tablet (500 mcg total) by mouth 1 (one) time each day. 90 each 3 5 Active fenofibrate (LOFIBRA) 54 mg tablet Take 1 tablet (54 mg total) by mouth 1 (one) time each day. 90 tablet 1 5 Active calcium carbonate-jaiden min D3 600 mg-5 mcg (200 unit) per tablet Take 1 tablet by mouth 2 (two) times a day. 30 each 1 5 Active calcium carbonate-jaiden min D3 600 mg-5 mcg (200 unit) per tablet Take 1 tablet by mouth 2 (two) times a day. 30 each 1 5 025 Discontin ued(Reord er) Encounters Date Type Department Care Team Description 04/07/2025 Telephone Internal Medicine - [address] [phone] Leydi Leonard MD 02/21/2025 8:45 AM EDT Office Visit Internal Medicine - [address] [phone] Leydi Leonard MD Vitamin D deficiency (Primary Dx); Adult general medical examination; Other fatigue; Screening for malignant neoplasm of prostate; Encounter for subsequent annual wellness visit (AWV) in Medicare patient 02/20/2025 Telephone Internal Medicine - [address] [phone] Nuno Goldman MA from Last 3 Months Surgical History Surgery Date Site/Laterality Comments LUMBAR LAMINECTOMY PROCEDURE: HISTORICAL LUMB LAMINECTOMY Medical History Medical History Date Comments Gastric polyps 01/08/2016 DX:Gastric polyp s GERD (gastroesophageal reflux disease) 01/06/2016 DX:GERD (gastroesophageal reflux disease) Hyperlipidemia 05/21/2018 DX:Hyperlipidemi a Major depression, recurrent (CMS/HCC V24) 10/18/2018 DX:Major depression, recurre nt ([facility]) Nicotine dependence 10/04/2016 DX:Nicotine dependence Post laminectomy syndrome 12/15/2017 DX:Pos t laminectomy syndrome Pre-diabetes 05/18/2018 DX:Pre-diabetes Psoriasis 09/06/2017 DX:Psoriasis SSBE (short-segment Fields' s esophagus) 04/20/2016 DX:SSBE (short-segment [place] tt's esophagus) Social History Tobacco Use Types [...] Sign Reading Time Taken Comments Blood Pressure 130/76 02/21/2025 8:29 AM EDT Pulse 72 02/21/2025 8:29 AM EDT Temperature 36.6 C (97.8 F) 02/21/2025 8:29 AM EDT Respiratory Rate - - Oxygen Saturation 98% 02/21/2025 8:29 AM EDT Inhaled Oxygen Concentration - - Weight 108 kg (238 lb 3.2 oz) 02/21/2025 8:29 AM EDT Height 177.8 cm (5' 10 ) 12/27/2024 11:00 AM EDT Body Mass Index 34.18 12/27/2024 11:00 AM EDT Plan of Treatment Health Maintenance Due Date Last Done Comments DTaP,Tdap,and Td Vaccines (1 - Tdap) 1974 Abdominal Aortic Aneurysm (AAA) Screen 08/20/2022 Falls Risk Assessment 08/20/2022 Hepatitis C Screening 08/20/2022 Social Influencers of Health Screening 08/20/2022 Depression Screening 09/11/2024 COVID-19 Vaccine ( season) 2025 02/23/2024, 06/14/2023, 06/21/2022, Additional history exists Influenza Vaccine (#1) 2025 , 07/21/2021, 06/28/2020, Additional history exists Medicare Annual Wellness Visit 02/21/2026 02/21/2025 RSV Immunization Adult Patients (1 - 1-dose 75+ series) 2029 Cholesterol Screening (Lipid Panel) 02/21/2030 02/21/2025 Colorectal Cancer Screening: Colonoscopy 02/04/2035 02/04/2025 Zoster Vaccines Completed 02/23/2022, 10/08/2021 Pneumococcal Vaccine: 50+ Years Completed 02/23/2024, 04/17/2015 HIB Vaccines Aged Out No longer eligi [...] 20 months Aged Out No longer eligible based on patient's age to complete this topic Varicella Vaccines Aged Out No longer eligible based on patient's age to complete this topic Procedures Procedure Name Priority Date/Time Associated Diagnosis Comments PROSTATE SPECIFIC ANTIGEN SCREEN Routine 02/21/2025 8:56 AM EDT Screening for malignant neoplasm of prostate HEMOGLOBIN A1C Routine 02/21/2025 8:56 AM EDT Vitamin D deficiency Adult general medical examination Other fatigue VITAMIN B12 Routine 02/21/2025 8:56 AM EDT Vitamin D deficiency Adult general medical examination Other fatigue THYROID STIMULATING HORMONE Routine 02/21/2025 8:56 AM EDT Vitamin D deficiency Adult general medical examination Other fatigue COMPLETE BLOOD COUNT Routine 02/21/2025 8:56 AM EDT Vitamin D deficiency Adult general medical examination Other fatigue LIPID PANEL WITH REFLEX TO DIRECT LDL Routine 02/21/2025 8:56 AM EDT Vitamin D deficiency Adult general medical examination Other fatigue COMPREHENSIVE METABOLIC PANEL Routine 02/21/2025 8:56 AM EDT Vitamin D deficiency Adult general medical examination Other fatigue EXTERNAL COLONOSCOPY REPORT Routine 02/04/2025 3:40 PM EDT from Last 3 Months or Most Recently Relevant to Health Maintenance Results * Prostate specific antigen screen (02/21/2025 8:56 AM EDT) PSA 2.21 0.00 - 4.00 ng/mL LAB CHEMISTRY METHOD 02/21/2025 3:48 PM EDT [facility] Blood Venous blood specimen / Unknown Venipuncture / Unknown 02/21/2025 8:56 AM EDT 02/21/2025 8:56 AM EDT Narrative [facility] - 02/21/2025 3:48 PM EDT The Siemens Advia Centaur Chemiluminescent Immunoassay is used. Results obtained with different assay methods or kits cannot be used interchangeably. Results cannot be interpreted as absolute evidence of the presence or absence of malignant disease. us Leydi Leonard MD LAB BLOOD ORDERABLES Final Res ult [facility] [address] [place] [address], [place] [phone] * (ABNORMAL) Lipid panel with reflex to direct LDL (02/21/2025 8:56 AM EDT) Cholesterol 175 0 - 200 mg/dL LAB CHEMISTRY METHOD 02/21/2025 2:55 PM EDT [facility] Triglycerides 181(H) 0 - 150 mg/dL LAB CHEMISTRY METHOD 02/21/2025 2:55 PM EDT [facility] HDL 48 >=40 mg/dL LAB CHEMISTRY METHOD 02/21/2025 2:55 PM EDT [facility] LDL Calculated 91 0 - 100 mg/dL LAB CHEMISTRY METHOD 02/21/2025 2:55 PM EDT [facility] VLDL Cholesterol Dewayne 36.2 mg/dL LAB CHEMISTRY METHOD 02/21/2025 2:55 PM EDT [facility] Non HDL Chol. (LDL+VLDL) 127 <145 mg/dL LAB CHEMISTRY METHOD 02/21/2025 2:55 PM EDT [facility] Chol/HDL Ratio 3.6 0.0 - 4.4 LAB CHEMISTRY METHOD 02/21/2025 2:55 PM EDT [facility] Blood Venous blood specimen / Unknown Venipuncture / Unknown 02/21/2025 8:56 AM EDT 02/21/2025 8:56 AM EDT us Leydi Leonard MD LAB BLOOD ORDERABLES Final Res ult [facility] [address] [place] [address], [place] [phone] * (ABNORMAL) Complete blood count (02/21/2025 8:56 AM EDT) WBC 9.4 4.8 - 10.8 K/mcL LAB HEMETOLOGY METHOD 02/21/2025 10:[address] [facility] RBC 5.20 4.50 - 5.50 M/[facility] LAB HEMETOLOGY [facility] Hemoglobin 14.5 13.5 - 17.5 g/dL LAB HEMETOLOGY METHOD 02/21/2025 10:[address] [facility] Hematocrit 45.4 42.0 - 54.0 % LAB HEMETOLOGY METHOD 02/21/2025 10:[address] [facility] MCV 86.8 79.0 - 98.0 FL LAB HEMETOLOGY METHOD 02/21/2025 10:07 AM EDT [facility] MCH 27.7 27.0 - 32.0 pcg LAB HEMETOLOGY METHOD 02/21/2025 10:07 AM EDT [facility] MCHC 31.9(L) 32.0 - 37.0 g/dL LAB HEMETOLOGY METHOD 02/21/2025 10:07 AM EDT [facility] RDW 14.3 11.0 - 15.0 % LAB HEMETOLOGY METHOD 02/21/2025 10:07 AM EDT [facility] Platelets 277 130 - 400 K/mcL LAB HEMETOLOGY METHOD 02/21/2025 10:07 AM EDT [facility] MPV 10.7 7.0 - 11.0 FL LAB HEMETOLOGY METHOD 02/21/2025 10:07 AM EDT [facility] NRBC 0.0 <1.0 % LAB HEMETOLOGY METHOD 02/21/2025 10:07 AM EDT [facility] NRBC Absolute 0.00 <0.10 K/mcL LAB HEMETOLOGY METHOD 02/21/2025 10:[address] [facility] Blood Venous blood specimen / Unknown Venipuncture / Unknown 02/21/2025 8:56 AM EDT 02/21/2025 8:56 AM EDT us Leydi Leonard MD LAB BLOOD ORDERABLES Final Res ult [facility] [address] [place] [address], * Thyroid stimulating hormone (02/21/2025 8:56 AM EDT) TSH 1.22 0.40 - 4.00 mcIU/mL LAB CHEMISTRY METHOD 02/21/2025 4:20 PM EDT [facility] Blood Venous blood specimen / Unknown Venipuncture / Unknown 02/21/2025 8:56 AM EDT 02/21/2025 8:56 AM EDT Leydi Leonard MD LAB BLOOD ORDERABLES Final Res ult Performing Organization Address City/[facility]/ZIP Co de Phone Number [facility] [address] [place] [address], [place] [phone] * Hemoglobin A1c (02/21/2025 8:56 AM EDT) Pathologist [facility] Hemoglobin A1C 6.0 <6.5 % LAB CHEMISTRY METHOD 02/21/2025 1:22 PM EDT [facility] Mean Bld Glu Estim. 126 mg/dL LAB CHEMISTRY METHOD 02/21/2025 1:22 PM EDT [facility] Blood Venous blood specimen / Unknown Venipuncture / Unknown 02/21/2025 8:56 AM EDT 02/21/2025 8:56 AM EDT Leydi Leonard MD LAB BLOOD ORDERABLES Final Res ult Performing Organization Address [facility] Co de Phone Number [facility] [address] [place] [address], [place] [phone] * Vitamin B12 (02/21/2025 8:56 AM EDT) [facility] Vitamin B-12 258 250 - 900 pcg/mL LAB CHEMISTRY METHOD 02/21/2025 2:55 PM EDT [facility] Blood Venous blood specimen / Unknown Venipuncture / Unknown 02/21/2025 8:56 AM EDT 02/21/2025 8:56 AM EDT Leydi Leonard MD LAB BLOOD ORDERABLES Final Res ult Performing Organization Address City/[facility]/ZIP Co de Phone Number [facility] [address] [place] [address], [place] [phone] * (ABNORMAL) Comprehensive metabolic panel (02/21/2025 8:56 AM EDT) Sodium 137 133 - 145 mmol/L LAB CHEMISTRY METHOD 02/21/2025 2:[address] [facility] Potassium 4.4 3.5 - 5.5 mmol/L LAB CHEMISTRY METHOD 02/21/2025 2:[address] [facility] Chloride 104 96 - 110 mmol/L LAB CHEMISTRY METHOD 02/21/2025 2:[address] [facility] CO2 31 21 - 32 mmol/L LAB CHEMISTRY METHOD 02/21/2025 2:[address] [facility] Anion Gap 2(L) 3 - 11 LAB CHEMISTRY METHOD 02/21/2025 2:[address] [facility] Glucose 104(H) 70 - 100 mg/dL LAB CHEMISTRY METHOD 02/21/2025 2:[address] [facility] BUN 28(H) 5 - 25 mg/dL LAB CHEMISTRY METHOD 02/21/2025 2:[address] [facility] Creatinine 1.10 0.70 - 1.30 mg/dL LAB CHEMISTRY METHOD 02/21/2025 2:[address] [facility] eGFR 72 >=60 mL/min/1. 73m2 LAB CHEMISTRY METHOD 02/21/2025 2:[address] [facility] Comment:Calculation based on the Chronic Kidney Disease Epidemiology Collaboration (CKD-EPI) equation refit without adjustment for race. BUN/Creatinine Ratio 25.5 LAB CHEMISTRY METHOD 02/21/2025 2:[address] [facility] Calcium 9.8 8.5 - 10.5 mg/dL LAB CHEMISTRY METHOD 02/21/2025 2:[address] [facility] AST (SGOT) 16 10 - 42 unit/L LAB CHEMISTRY METHOD 02/21/2025 2:55 PM EDT [facility] ALT (SGPT) 28 10 - 60 unit/L LAB CHEMISTRY METHOD 02/21/2025 2:55 PM EDT [facility] Alkaline Phosphatase 73 42 - 121 unit/L LAB CHEMISTRY METHOD 02/21/2025 2:55 PM EDT [facility] Total Protein 6.8 6.0 - 8.0 g/dL LAB CHEMISTRY METHOD 02/21/2025 2:55 PM EDT [facility] Albumin 3.8 3.2 - 5.0 g/dL LAB CHEMISTRY METHOD 02/21/2025 2:55 PM EDT [facility] Total Bilirubin 0.2 0.0 - 1.4 mg/dL LAB CHEMISTRY METHOD 02/21/2025 2:55 PM EDT [facility] Blood Venous blood specimen / Unknown Venipuncture / Unknown 02/21/2025 8:56 AM EDT 02/21/2025 8:56 AM EDT Leydi Leonard MD LAB BLOOD ORDERABLES Final Res ult [facility] [address] [place] [address], * External Colonoscopy Report (02/04/2025 3:40 PM EDT) Anatomical Region Laterality Modality Endoscopy Historical Provider GI~PROCEDURE ORDERABLES F inal Result from Last 3 Months or Most Recently Relevant to Health Maintenance Insurance MEDICAID - [place] [employer] MEDICARE Member Subscriber Plan / Payer (Ef fective 2024-Present) Name:ABEL JAUREGUI Relation to Subscriber:Self Name:Abel Jauregui Payer ID:[id number] Group ID:[id number] Type:Not on file Address: [address] [place] [address] Care Teams Retirement Sales Consultant Relationship Specialty Start Date End Date Leydi Leonard MD [address] [phone] PCP - General Internal Medicine 07/26/18
--- OUTSIDE RECORDS SUMMARY | 2025-05-15 11:07 | XMS_ITS ---
Author Name Mr. Garcia Hinojosa Address [address] [place] [address] Phone [phone] [facility] Care Team Providers Care Roof Bolter Operator Name Role Phone Andres Smith Unavailable [phone] Christin Norman Unavailable Unavailable Leydi Leonard Unavailable [phone] Signed ORDERS, [employer] Unavailable Reason for Referral [...] List Problem Status Onset Date Resolved Date Synopsis Chronic prescription opiate use Active 2022-12-09 N/A mcc use of morphine, oxycodone, meloxicam.Has Narcan. Difficulty walking Active 2024-01-31 N/A Can wa lk around 10-15 ft(only with vertical walker) then has to rest. Major depressive disorder, recurrent Active 2022-12-09 N/A continue escital opramf/u with psychiatry Please consult regarding best sleep management and anxiety/depression management medication. Generalized anxiety disorder Active 2022-12-09 N/A continue lorazepamf/u with psychiatrist Please consult regarding best sleep management and anxiety/depression management medication. Other problems related to medical facilities and other health care Active 2024-02-02 N/A Please call CB i f you fall.Contingency plan dependent on nature of fall and extent of injuries; managed by ortho/spine specialists, pain management. Chronic radicular low back painUnspecified inflammatory spondylopathy, lumbar region Active 2022-12-09 N/A pt has spinal fusion with medal rodsunable to bend overNeeds help for most ADLs Encounters Encounters Type Facility Date of Service Diagnosis/Co mplaint New patient,40-59min; chronic exacerbation, 2 stable chronic or 1 acute illness add add modifier 95 for video (do not use for phone, instead use [id number]) [facility] ([place]) 12/09/2022 Radiculopathy, lumbar regionOther chronic painLong term (current) use of opiate analgesicGeneralized anxiety disorderMajor depressive disorder, recurrent, unspecified New patient,40-59min; chronic exacerbation, 2 stable chronic or 1 acute illness add add modifier 95 for video (do not use for phone, instead use 88370-22) [facility], ([place]) 12/09/2022 New patient,40-59min; chronic exacerbation, 2 stable chronic or 1 acute illness add add modifier 95 for video (do not use for phone, instead use 07168-39) [facility], ([place]) 12[place]09/2022 New patient,40-59min; chronic exacerbation, 2 stable chronic or 1 acute illness add add modifier 95 for video (do not use for phone, instead use 49707-68) [facility] ([place]/2022 New patient,40-59min; chronic exacerbation, 2 stable chronic or 1 acute illness add add modifier 95 for video (do not use for phone, instead use 66694-61) [facility] ([place]/2022 New patient,40-59min; chronic exacerbation, 2 stable chronic or 1 acute illness add add modifier 95 for video (do not use for phone, instead use 50097-20) [facility] ([place] 12/09/2022 New patient,40-59min; chronic exacerbation, 2 stable chronic or 1 acute illness add add modifier 95 for video (do not use for phone, instead use 64859-31) [facility] [place] 12/[place]/2022 New patient,40-59min; chronic exacerbation, 2 stable chronic or 1 acute illness add add modifier 95 for video (do not use for phone, instead use 55871-83) [facility] ([place] 12/09/2022 New patient,40-59min; chronic exacerbation, 2 stable chronic or 1 acute illness add add modifier 95 for video (do not use for phone, instead use 59615-48) [facility] ([place] 12/09/2022 New patient,40-59min; chronic exacerbation, 2 stable chronic or 1 acute illness add add modifier 95 for video (do not use for phone, instead use 08953-74) [facility] [place]/2022 Estab. patient 30-39min; chronic exacerbation, 2 stable chronic or 1 acute illness add add modifier 95 for video, (do not use for phone, instead use 72619-91) [facility] ([place] 01/31/2024 Radiculopathy, lumbar regionOther chronic painUnspecified inflammatory spondylopathy, lumbar regionLong term (current) use of opiate analgesicGeneralized anxiety disorderOther problems related to medical facilities and other health careMajor depressive disorder, recurrent, unspecifiedDifficulty in walking, not elsewhere classified Estab. patient 30-39min; chronic exacerbation, 2 stable chronic or 1 acute illness add add modifier 95 for video, (do not use for phone, instead use 51262-61) [facility] ([place] 01/[place]/20[place] Estab. patient 30-39min; chronic exacerbation, 2 stable chronic or 1 acute illness add add modifier 95 for video, (do not use for phone, instead use 81578-03) [facility] [place] 01/[place]/20[place] Estab. patient 30-39min; chronic exacerbation, 2 stable chronic or 1 acute illness add add modifier 95 for video, (do not use for phone, instead use 47285-03) [facility] [place] 01/[place]/20[place] Estab. patient 30-39min; chronic exacerbation, 2 stable chronic or 1 acute illness add add modifier 95 for video, (do not use for phone, instead use 91806-99) [facility] [place] 01/[place]/2024 Estab. patient 30-39min; chronic exacerbation, 2 stable chronic or 1 acute illness add add modifier 95 for video, (do not use for phone, instead use 26324-54) [facility] [place] 01/[place]/2024 Estab. patient 30-39min; chronic exacerbation, 2 stable chronic or 1 acute illness add add modifier 95 for video, (do not use for phone, instead use 41310-14) [facility] ([place] 01/31/2024 Vital Signs Date of Collection Vitals [...] tive Time Current Smoking Status Former smoker 4 Sex Male History of Procedures Procedures Service Procedure code Service date Servicing provider Phone# New patient,40-59min; chronic exacerbation, 2 stable chronic or 1 acute illness add add modifier 95 for video (do not use for phone, instead use 33330-25) 00251 2022-12-09 No Data Available No Data Availa [...] (do not use for phone, instead use 39772-80) 09608 2024-01-31 No Data Available No Data Availa [...] Documented (1125F)Continue to see PCP. [facility] [...] modifier 95Advance care planning discussed and documented advance care plan or surrogate decision-maker was documented in the medical record. (1123F)Pain Assessment - Pain Documented (1125F)Continue to see PCP. Follow-up with [facility] as needed for any acute or [...] to the ER.4. Discussed how to contact [facility] via phone or tablet. Health Concerns [...]
== END 2025-05-15 10:45 | disposition home or self-care (01) ==
LOC: HO.HOS 10:01
PROVIDERS: PCP Internal Medicine; Visit Provider Orthopaedic Surgery
DX: M16.0 Bilateral primary osteoarthritis of hip (principal); M54.16 Radiculopathy, lumbar region
CPT/HCPCS: 99203; G2211

== ENCOUNTER → 2025-05-15 10:00 | Outpatient (BNVA) | payer OTHER, SELFPAY | PROVIDERS: PCP Internal Medicine; Visit Provider Orthopaedic Surgery | DX: M16.0 Bilateral primary osteoarthritis of hip (principal); M54.16 Radiculopathy, lumbar region | CPT/HCPCS: 99202 ==